=== PATIENT | male | born 1985 | race Caucasian/White ===

== ENCOUNTER 2025-05-23 22:06 | Emergency (ER) | payer OTHER ==
[~2025-05-23] VITALS: Ht 170.2 cm; Wt 92.0 kg
[2025-05-23 22:24] VITALS: BP 152/87; PULSE 93; TEMP 98.4; O2SAT 96
--- NOTE | 2025-05-23 22:31 | ELECTROCARDIOGRAPH REPORT ---
[facility] Test Date: 2025-05-23 Test Time: 22:13:11 Pat Name: FORREST GUTIERREZ Department: EMERGENCY ROOM Room: Gender: M Accounting Assistant: DOLLY : 1985 Requested By: SCOTT ADEN Order Number: [id number] Reading MD: Measurements Intervals [place] Rate: 93 P: 33 [place]: 124 QRS: 14 QRSD: 111 T: 32 QT: 344 QTc: 428 Interpretive Statements Sinus rhythm Abnormal R-wave progression, early transition Please click the below link to view image of tracing.
[2025-05-23 22:44] LABS: MEAN PLATELET VOLUME 7.6 FL (7.4-10.4); RED CELL DISTRIBUTION WIDTH 13.5 % (11.5-14.5)
--- NOTE | 2025-05-23 22:45 | Physician Documentation ---
History of Present Illness ~ Chief Complaint: Dizziness Stated Complaint: DIZZINESS Time Seen by MD: 22:45 HPI 39-year-old male who presents with a near syncopal episode He tells me he is visiting from out of town. He drove up here today from around [place], on a vacation with his . He was at a bar, about to have a drink, when he started to feel lightheaded. He describes feeling dizzy, sweaty, having tunnel vision and feeling slightly nauseous. He felt like he was going to pass out so he got up with his to leave. She says he kind of shea. They got in the car and turned on the air conditioning. He called the nurse victorino yoo line was told to go to the ER to check out his heart. Currently, he states that he is feeling better. He feels slightly dizzy and anxious, but denies any other current symptoms. No fevers, chest pain, palpitations, vomiting, diarrhea, or other associated symptoms. He did eat and drink well today. He was wearing a smart watch, which shows that his heart rate did not go higher than 120 during these episodes. He had 1 episode about 10 years ago that was similar. Medication Reconciliation Allergies: Coded Allergies: No Known Allergies (Unverified , 05/23/25) Review of Systems Cardiovascular: Reports: diaphoresis, lightheadedness Gastrointestinal: Reports: nausea; Denies: abdominal pain Neurological: Reports: dizziness Physical Exam Vital Signs: Temperature: 98.4, Source: Oral, Heart Rate: 93, Respiratory Rate: 18, BP: 152/87, Pulse Oximetry: 96, Weight: 92.000 Oxygen Flow Rate: 0 Physical Exam General: This is a well-appearing young man, at bedside HEENT: Atraumatic, oropharynx is moist Heart: Mild tachycardic, appears regular, normal-appearing peripheral perfusion Lungs: Clear breath sounds bilateral, normal work of breathing, normal oxygen saturation on room air Abdomen: Soft, nondistended, nontender all quadrants Extremities: Warm and well-perfused Neuro: Alert and oriented, no focal deficits Psychiatric: Calm and cooperative with exam Progress Results/Orders Results/Orders Vital Signs 05/23/25 05/23/25 22:24 22:49 Temp 98.4 Pulse 93 Resp 18 18 B/P (MAP) 152/87 Pulse Ox 96 O2 Flow Rate 0 Laboratory Tests Test 05/23/25 22:18 White Blood Count 11.4 H Red Blood Count 5.22 Hemoglobin 15.1 Hematocrit 44.9 Mean Corpuscular Volume 86.0 Mean Corpuscular Hemoglobin 28.9 Mean Corpuscular Hemoglobin Concent 33.7 Red Cell Distribution Width 13.5 Platelet Count 282 Mean Platelet Volume 7.6 Neutrophils (%) (Auto) 79.7 H Lymphocytes (%) (Auto) 13.2 L Monocytes (%) (Auto) 6.2 Eosinophils (%) (Auto) 0.7 Basophils (%) (Auto) 0.2 Neutrophils # (Auto) 9.1 H Lymphocytes # (Auto) 1.5 Monocytes # (Auto) 0.7 Eosinophils # (Auto) 0.1 Basophils # (Auto) 0.0 CBC Comment Sodium Level 140 Potassium Level 3.7 Chloride Level 102 Carbon Dioxide Level 24.8 Anion Gap 13 Blood Urea Nitrogen 9 Creatinine 1.14 H Estimated GFR/1.73 m2 72 BUN/Creatinine Ratio 7.9 L Glucose Level 124 H Calcium Level 9.1 Troponin I High Sensitivity 4 Pro-B-Type Natriuretic Peptide < 30 Albumin 4.3 Chemistry Comments EKG/XRAY/CT/US/VASC/MRI EKG : Additional Comment I personally interpreted the EKG and this shows: Sinus rhythm, rate 93, QTC 428, no STEMI or acute ischemic changes Chest X-Ray : Additional Comments I personally reviewed the chest x-ray, and it shows: No focal consolidation, no pulmonary edema, no mediastinal widening Medical Decision Making Differential Dx:Considerations: Include: anemia, dehydration, dysrhythmia, electrolyte imbalance, hypotension, renal failure Assessment The patient presents with a near syncopal episode. Per his history and exam, this seems most likely a vasovagal type episode. His EKG is reassuring. His blood work is reassuring including no evidence of severe dehydration, electrolyte derangement, ACS, or anemia. He is currently essentially asymptomatic, has no concerning findings on history or exam at this time. I do not feel that any further workup or testing is indicated given his otherwise well appearance and young age. He will be discharged with home care instructions and return precautions. Departure Time of Disposition: 23:33 Disposition: 01 HOME / SELF CARE / HOMELESS Impression: Primary Impression: Vasovagal near syncope Condition: Stable Discharge Instructions: Near-Syncope Referrals: NO PRIMARY CARE PROVIDER (PCP) Education Educated: Patient, Family Educated regarding: diagnosis, treatment, need for follow up Signature Scribe Signature: na Attestation: SHRUTHI Lindsey MD May 23, 2025 22:45
[2025-05-23 22:49] VITALS: RESP 18
[2025-05-23 22:54] LABS: CREATININE 1.14 MG/DL (0.60-1.10); TOTAL CARBON DIOXIDE 24.8 MMOL/L (24-32); eCRCL 81 ML/MIN; eGFR 72 ML/MIN
--- NOTE | 2025-05-23 22:55 | RADIOLOGY REPORT ---
CHEST RADIOGRAPH Indication: CP Technique: Single frontal view of the chest was obtained COMPARISON: None FINDINGS: Lines and Tubes: None Lungs: Clear Pleura: No effusion. No pneumothorax. Cardiomediastinal contours: Unremarkable Bones: Unremarkable IMPRESSION: 1. No acute disease.
[2025-05-23 23:02] LABS: PRO BRAIN NATRIURETIC PEPTIDE < 30 PG/ML (0-125)
== END 2025-05-24 00:17 | disposition home or self-care (01) ==
LOC: ER 22:08
DX: R55 Syncope and collapse (principal); R42 Dizziness and giddiness; R11.0 Nausea; R06.02 Shortness of breath
CPT/HCPCS: 36415; 71045; 80048; 83880; 84484; 85025; 93005; 99285